=== PATIENT | female | born 1970 ===

== ENCOUNTER 2018-02-21 10:45 | Inpatient (IN) | payer BC ==
[2018-02-22 11:56] VITALS: BMI 20.3
[2018-02-28] MEDS ORDERED: Midazolam 2 MG/2 ML VIAL ONE (10:20)
[2018-02-28] MEDS ORDERED: Propofol 10 mg/ml Inj (20 ML) ONE (10:21)
[2018-02-28] MEDS ORDERED: Sodium Chloride 0.9% 20 ML IV ONE (10:21)
[2018-02-28] MEDS ORDERED: ceFAZolin 1 gm in NS 1 GM/100 ML BAG IVPB ONE (10:21)
[2018-02-28] MEDS ORDERED: Bupivacaine-Epi 0.5%-1:200,000 PF Inj ONE (10:21)
[2018-02-28] MEDS ORDERED: Rocuronium 10 mg/ml (5 ml) ONE (14:27)
[2018-02-28] MEDS ORDERED: White Petrolatum/Mineral Oil Ophth Oint(3.5 gm) ONE (14:28)
[2018-02-28] MEDS ORDERED: Morphine 4 MG/ML VIAL ONE (14:35)
[2018-02-28] MEDS ORDERED: Labetalol 25mg/5ml Syringe ONE (14:48)
[2018-02-28] MEDS ORDERED: Neostigmine Methylsulfate 3mg/3ml Syringe IV ONE (14:49)
[2018-02-28] MEDS ORDERED: Oxycodone/Acetaminophen 5/325 mg Tab PO PRN ×2 (15:19→15:26)
--- NOTE | 2018-02-28 15:26 | PCM.SURG1 ---
Surgeon's Initial Post Op Note - Surgeon's Notes Surgeon: Henny Mckeon MD Dry Color Mixer: Cody Gayle MD Type of Anesthesia: General Endo Pre-Operative Diagnosis: Abnormal uterine bleeding,sympomatic fibroid uterus, abdominal pain, bladder pain, rectal pain, sympomatic anemia Operative Findings: 14-16 week size fibroid enlarged uteurs with 5cm cervical myoma, normal tubes bilaterally adherent to ovarier, right ovary adherent to uterosacral, falloopian tube, pelivc site wall and ureter, left fallopian tube adherent, bilateural uretral jets on cystsocpy, mild left hydroureter, enodmetrios thorughout cul de sac, essure device coil removed Post-Operative Diagnosis: Uterine fibroid, adenomyosis, retained embedded essure device, pelvic endometriosis, left ovarian endometrioma, right ovarian endometrioma , mild left hydroureter, Operation Performed: Cystoscopy with bilateral uretral catherization, injection of fluoscenin dye and bilaterual uretolysis and excision of endometriosos performed by Dr Cody Gayle. Operative laparsopcy with Da Bradford robot with total robotic hysterectomy, Bilateral salpingopphrecotmy, Right ovarian lysis of adhesions, exicsion of embedded essure device, performed by Dr Mckeon Specimen/Specimens Removed: Uterus, cervix, essure device, left and right fallopian tubes and left and right ovaries Estimated Blood Loss: EBL {In ML}: 100 Blood Products Given: N/A Drains Used: No Drains Post-Op Condition: Good Date of Surgery/Procedure: 02/28/18 Time of Surgery/Procedure: 11:00
[2018-02-28] MEDS ORDERED: Lactated Ringer's 1,000 ML IV SCH (15:45)
[2018-02-28] MEDS: HYDROmorphone 0.5 mg/0.5 ml ISec IVP PRN ×2 (16:15→16:50)
--- NOTE | 2018-02-28 19:04 | OP ---
PROCEDURE DATE: 02/28/2018 SURGEON: Henny Mckeon MD ASSISTED BY: Cody Gayle MD PREOPERATIVE DIAGNOSES: As follows: 1. Pelvic pain. 2. Dysmenorrhea. 3. Dyspareunia. 4. Abdominal pain. 5. Bladder pain. 6. Abnormal uterine bleeding. 7. Uterine fibroid. 8. Pelvic endometriosis. 9. Right ovarian endometrioma. 10. Rule out interstitial cystitis. POSTOPERATIVE DIAGNOSES: 1. Pelvic pain. 2. Dysmenorrhea. 3. Dyspareunia. 4. Abdominal pain. 5. Bladder pain. 6. Abnormal uterine bleeding. 7. Uterine fibroid. 8. Pelvic endometriosis. 9. Right ovarian endometrioma. 10. Rule out interstitial cystitis. 11. Uterine adenomyosis. 12. Extensive pelvic adhesions. 13. Bilateral ureteral mild hydroureter. PROCEDURES PERFORMED: 1. Exam under anesthesia. 2. Cystoscopy with bilateral urethral catheterization and injection of IC-Green dye. 3. Operative robotic da Bradford laparoscopy. 4. Hysterectomy with bilateral salpingo-oophorectomy. 5. Lysis of adhesions. 6. Ovariolysis. 7. Excision of endometriosis. 8. Excision of right ovarian endometrioma and to be dictated separately by Dr. Cody Gayle, who was called in to assist and the procedure is bilateral ureterolysis. ANESTHESIA: General endotracheal. ESTIMATED BLOOD LOSS: 50 mL. INPUT AND OUTPUTS: Adequate. SPECIMENS: Include uterus, uterine fibroid, right ovary with the ovarian endometrioma, bilateral fallopian tubes, left ovary and pelvic endometriosis, all sent to Pathology. Also the sample contain an Essure device and had been embedded into the left pelvic sidewall. INDICATION FOR THE PROCEDURE AND CONSENT: The patient is a 48-year-old female with the long-lasting history of pelvic pain, dysmenorrhea, dyspareunia, abdominal pain, and bladder pain, and diffuse genitourinary pain of long duration. She also had abnormal uterine bleeding. She had a full workup, which included imaging which revealed the presence of a large adenomyotic uterus with the uterine fibroid as well as pelvic endometriosis. The right ovary was clearly seen to be adherent to the right pelvic sidewall with the right endometrioma and pelvic and rectopelvic adhesions. Prior to the surgery, also the patient had an Essure device placed and this was creating also abnormal symptoms. Prior to the surgery, the patient was counseled with regards to all the risks and benefits of the procedures and she agreed to moving forward with the surgery and all alternatives having been exhausted as she had failed multiple medical therapies. She understood that because of the particular difficultly of this procedure, she would necessitate a cystoscopy replacement of uterine stents and injection of IC-Green dye for the purpose of identifying the ureters throughout this difficult procedure and she agreed to that, to which she signed the consent and she was taken to the OR. FINDINGS OF SURGERY: The exam under anesthesia revealed a large uterus about 10 to 12 weeks gestation in size and the cystoscopy revealed a normal size bladder with no evidence of trigonitis, tumors or any other lesions or endometrial zone inside the bladder. The upper abdomen appear to be normal with normal liver, normal ascending and descending colon, normal appendix. The pelvis revealed significant adhesions with the uterus was large with the large posterior fibroid in the retroverted flexed position. The right ovary with significant adherent to the posterior pelvic sidewall and adherent as well on top of the ureter with the significant endometrioma. The left ovary was twisted posteriorly and the bladder was pulled up and distorted also secondary to the patient's prior surgery. DESCRIPTION OF PROCEDURE: At this point, the patient was taken to the OR and placed in dorsal lithotomy position. She was prepped and draped and the surgeons were gowned and gloved. Extreme attention was made in padding the patient in every area prone to pressure. Also extreme attention was placed in not overextend and over flexing the hips of the patient. A time-out was taken according to the hospital policy and the procedure was started. The first part of the procedure involved the cystoscopy. The cystoscope was inserted into the bladder. A 200 mL of fluid were inserted. The bladder appeared to be free of lesions and tumors. Both ureteral ostia were within the anatomical position. The left ureter then was cannulated with the 5-Finnish open-ended catheter all the way to the distal ureter and 5 mL of IC-Green were injected. Similarly, the contralateral ureter were also cannulated all the way to the distal ureter and 5 mL of Isovue were injected. At this point, the cystoscope was removed and the 16-Finnish Madrigal was inserted into the bladder. At this point, a speculum was placed in the vagina. The anterior lip of the cervix was grasped and the uterine manipulator was inserted into the uterus with a large size V-care without any problems. After regowning and regloving, attention was on the abdomen where the docking of the robot happened. An open laparoscopy was performed. An incision was made in the umbilicus with the open laparoscopy technique incising the fascia and the sharp fascia, entered into the peritoneum in a blunt fashion. A trocar was simply inserted and under direct visualization, the abdomen was insufflated. Under direction visualization, the shoulder portals were inserted in the left upper quadrant and right upper quadrant and left lower quadrant. The left quadrant was probed with the 12-mm in size. The findings were as described above. At this point, the da Bradford Xi robot was docked. Next, we proceeded with the lysis of adhesions. After elevating the uterus, it was evident that both the left and the right fallopian tubes and the ovaries were severely adherent to the posterior side cobian of the uterus and this was due to the presence of severe endometriosis. The uterus was elevated and a progressive dissection was performed. The ureters were identified using fluorescent technology. Dr. Gayle was called in and assisted and performed a ureterolysis, which he will dictate separately. Once the ureters were free of adhesions, the right ovary was elevated and free of adhesions. We proceeded to continue with the hysterectomy. The round ligament was first coagulated and ligated on the left hand side progressively and anterior bladder flap was developed by making an incision and progressively dissecting the bladder of the anterior part of the cervix. Dissection was continued on the left hand side where the utero-ovarian ligament was cut and progressively dissected all the way down to the uterine vessels all the way on the left hand side. At this point because of the five adhesions of the right ovary to the right pelvic sidewall, we proceeded with ligating the infundibulopelvic ligament and progressing without dissection always keeping an eye on the right ureter utilizing fluorescent technology all the way from the infundibulopelvic ligament all the way down to the broad ligament. Once this was incised, the round ligament also was incised and a bladder flap was developed anteriorly. At this point once the bladder flap was developed, the uterine vessels were ligated first on the right hand side always with extreme care to visualize the right ureter under direct visualization using fluorescence and they were cut creating a pedicle. Similarly on the left hand side, they were also coagulated first and then cut. Therefore freeing the uterus and freeing it from its vascular component. Throughout this time, the ureter always kept in visualization utilizing fluorescent technology. At this point because of the large size of the uterus, the uterus was amputated and the cervix was visualized. A trachelectomy at this point was performed utilizing the back stop of the V-Care as a guide. The cervix was then removed. The uterus was too large to be removed vaginally and therefore at this point we proceeded with closure of the vaginal cuff. We checked for hemostasis and was excellent. The vaginal cuff was closed with the running suture of 2-0 PDS in two separate layers. At this point, she was sent for hemostasis appeared to be excellent and the cuff was in excellent condition. Both pedicles were inspected. At this point, attention was on the left hand side where the deep infundibulopelvic ligament on the left side was cut and both the ovary and the fallopian tube on the left were removed. An area of invasive endometriosis nodule was identified in the left pelvic sidewall and it was excised. At this point, it was checked for hemostasis again and there appears to be excellent. The da Bradford robot was then docked. The instruments removed. The abdominal incision and the umbilicus was slightly extended and we proceeded with exteriorizing the uterus and taken it off from the incision. At this point, the incisions were closed with 0 PDS for the fascia and 4-0 Monocryl for the skin. At the end of the procedure, all instruments and counts were correct. The patient tolerated the procedure well and was taken to the recovery room in excellent condition. Cody Gayle MD MTDFlaco
[2018-02-28] MEDS: Simethicone 80 mg Chewtab PO SCH (22:58)
[2018-02-28] MEDS: cefOXitin IV 1 gm in Dextrose 1 GM/50 ML BAG IVPB SCH ×2 (23:00→23:06)
[2018-03-01 01:20] VITALS: O2SAT 99
[2018-03-01] MEDS: Simethicone 80 mg Chewtab PO SCH ×2 (06:47→14:10)
[2018-03-01] MEDS: cefOXitin IV 1 gm in Dextrose 1 GM/50 ML BAG IVPB SCH (06:48)
[2018-03-01 07:55] LABS: MEAN CELL VOLUME 83.7 fL (81.0-99.0); MEAN CORPUSCULAR HEMOGLOBIN 28.1 pg (27.0-31.0); MEAN CORPUSCULAR HGB CONC 33.6 g/dL (33.0-37.0); RBC 3.57 Mil/uL (3.80-5.20); RED CELL DISTRIBUTION WIDTH 23.4 % (11.5-14.5); WHITE BLOOD COUNT 8.5 K/uL (4.8-10.8)
[2018-03-01 08:35] LABS: ALB/GLOB RATIO 1.3 (1.0-2.1); ALBUMIN 3.5 g/dL (3.5-5.0); ALT/SGPT 37 U/L (9-52); AST/SGOT 29 U/L (14-36); BLOOD UREA NITROGEN 7 mg/dL (7-17); CALCIUM 8.9 mg/dl (8.6-10.4); GFR AFRICAN-AMERICAN > 60; GFR NON-AFRICAN AMERICAN > 60
[2018-03-01] MEDS ORDERED: Magnesium Hydroxide Susp 30 ml UD PO ONE (17:48)
[2018-03-01 17:50] VITALS: BP 95/50; PULSE 73; RESP 18; TEMP 98.4
--- NOTE | 2018-03-02 10:27 | CP.PCM.PN ---
Subjective - Date & Time of Evaluation Date of Evaluation: 03/01/18 Time of Evaluation: 07:00 - Subjective Subjective: pt seen adn examiend rpeort pain over icnsion, ambiatn,v odign, not passing flauts, toeratign regualrd eit, no fever, hclls, neau vmoitng, cp sob Objective - Vital Signs/Intake and Output Vital Signs (last 24 hours): Temp Pulse Resp BP Pulse Ox 98.4 F 73 18 95/50 L 99 03/01/18 16:00 03/01/18 16:00 03/01/18 16:00 03/01/18 16:00 03/01/18 16:00 Intake and Output: 03/02/18 03/02/18 06:59 18:59 Intake Total 1090 Output Total 0 Balance 1090 - Labs Labs: 03/01/18 07:47 03/01/18 07:47 - Constitutional Appears: Well, Non-toxic - Head Exam Head Exam: ATRAUMATIC, NORMAL INSPECTION - Eye Exam Eye Exam: EOMI - ENT Exam ENT Exam: Mucous Membranes Moist, Normal Exam - Neck Exam Neck Exam: Normal Inspection - Respiratory Exam Respiratory Exam: Clear to Ausculation Bilateral, NORMAL BREATHING PATTERN - Cardiovascular Exam Cardiovascular Exam: +S1, +S2 - GI/Abdominal Exam GI & Abdominal Exam: Soft, Tenderness, Normal Bowel Sounds Additional comments: TTP over incsion c/d/i healign well no guaridn no revboudn tendner no rigidty - Rectal Exam Rectal Exam: NORMAL INSPECTION - Extremities Exam Extremities Exam: Full ROM, Normal Capillary Refill, Normal Inspection Additional comments: neative regis sign - Back Exam Back Exam: NORMAL INSPECTION. absent: CVA tenderness (L), CVA tenderness (R), Full ROM, muscle spasm, paraspinal tenderness, rash noted, tenderness, vertebral tenderness Assessment and Plan (1) S/P hysterectomy with oophorectomy Assessment & Plan: 1. pain mananget 2. dc luke 3. regular diet 4. am albs 5. bowel regiment 6. abodmian binder, infecitve psironmette Status: Acute
--- NOTE | 2018-03-03 02:52 | CP.PCM.DIS ---
Provider - Provider Date of Admission: 02/28/18 09:11 Attending physician: Henny Mckeon MD Time Spent in preparation of Discharge (in minutes): 30 Diagnosis - Discharge Diagnosis (1) S/P hysterectomy with oophorectomy Status: Acute Priority: Medium Hospital Course - Lab Results Lab Results: Most Recent Lab Values WBC 8.5 K/uL (4.8-10.8) 03/01/18 07:47 RBC 3.57 Mil/uL (3.80-5.20) L 03/01/18 07:47 Hgb 10.0 g/dL (11.0-16.0) L 03/01/18 07:47 Hct 29.9 % (34.0-47.0) L 03/01/18 07:47 MCV 83.7 fL (81.0-99.0) 03/01/18 07:47 MCH 28.1 pg (27.0-31.0) 03/01/18 07:47 MCHC 33.6 g/dL (33.0-37.0) 03/01/18 07:47 RDW 23.4 % (11.5-14.5) H 03/01/18 07:47 Plt Count 247 K/uL (130-400) 03/01/18 07:47 MPV 9.0 fL (7.2-11.7) 03/01/18 07:47 Sodium 137 mmol/L (132-148) 03/01/18 07:47 Potassium 4.0 mmol/L (3.6-5.2) 03/01/18 07:47 Chloride 102 mmol/L (98-107) 03/01/18 07:47 Carbon Dioxide 27 mmol/L (22-30) 03/01/18 07:47 Anion Gap 12 (10-20) 03/01/18 07:47 BUN 7 mg/dL (7-17) 03/01/18 07:47 Creatinine 0.5 mg/dL (0.7-1.2) L 03/01/18 07:47 Est GFR ( Amer) > 60 03/01/18 07:47 Est GFR (Non-Af Amer) > 60 03/01/18 07:47 Random Glucose 101 mg/dL (65-105) 03/01/18 07:47 Calcium 8.9 mg/dl (8.6-10.4) 03/01/18 07:47 Total Bilirubin 0.6 mg/dL (0.2-1.3) 03/01/18 07:47 AST 29 U/L (14-36) 03/01/18 07:47 ALT 37 U/L (9-52) 03/01/18 07:47 Alkaline Phosphatase 37 U/L (38-126) L 03/01/18 07:47 Total Protein 6.2 g/dL (6.3-8.3) L 03/01/18 07:47 Albumin 3.5 g/dL (3.5-5.0) D 03/01/18 07:47 Globulin 2.7 gm/dL (2.2-3.9) 03/01/18 07:47 Albumin/Globulin Ratio 1.3 (1.0-2.1) 03/01/18 07:47 Blood Type O NEGATIVE 02/28/18 10:05 Antibody Screen Negative 02/28/18 10:05 - Hospital Course Hospital Course: s/p TRH, BSO, cystscopy lianna post op course Discharge Exam - Head Exam Head Exam: ATRAUMATIC, NORMAL INSPECTION - Eye Exam Eye Exam: EOMI, Normal appearance - Respiratory Exam Respiratory Exam: Clear to PA & Lateral, NORMAL BREATHING PATTERN, UNREMARKABLE - Cardiovascular Exam Cardiovascular Exam: REGULAR RHYTHM, +S1, +S2 - GI/Abdominal Exam GI & Abdominal Exam: Normal Bowel Sounds, Soft, Unremarkable - Rectal Exam Rectal Exam: NORMAL INSPECTION - Extremities Exam Extremities exam: calf tenderness, full ROM, joint swelling, normal capillary refill, normal inspection, pedal edema, tenderness, pedal pulses present - Neurological Exam Neurological exam: CN II-XII Intact, Normal Gait, Oriented x3, Reflexes Normal Discharge Plan - Discharge Medications Prescriptions: Ibuprofen [Motrin] 600 mg PO Q6 PRN #15 tab PRN Reason: pain oxyCODONE/Acetaminophen [Percocet 5/325 mg Tab] 1 tab PO Q6 #12 tab - Follow Up Plan Condition: GOOD Disposition: HOME/ ROUTINE Patient education suggested?: Yes Instructions: How to Prevent Surgical Site Infections, Robot-Assisted Hysterectomy, Ovarian Cyst Removal, Laparoscopic Surgery Additional Instructions: No heavy lifting, pls go to ER for severe pain or any bleeding. Referrals: Henny Mckeon MD [Staff Provider] -
--- NOTE | 2018-03-05 19:05 | OP ---
Copied To: Cody Gayle MD Attending MD: Cody Gayle MD PROCEDURE DATE: 02/28/2018 SURGEON: Cody Gayle M.D. ASSISTED BY: Henny Mckeon M.D. PREOPERATIVE DIAGNOSIS: Mild bilateral hydroureters. POSTOPERATIVE DIAGNOSIS: Mild bilateral hydroureters. PROCEDURE PERFORMED: Bilateral ureterolysis, robotic da Bradford. TYPE OF ANESTHESIA: General endotracheal. ESTIMATED BLOOD LOSS: Minimal. COMPLICATIONS: None. description of THE PROCEDURE: I was called in to assist Dr. Henny Mckeon, who was performing hysterectomy with bilateral salpingo-oophorectomy. The patient had evidence of endometriosis with significant adhesions. She had priorly performed a cystoscopy with bilateral urethral catheterization and injection of IC-Green dye. Ureters were both visible. This was during the performing of hysterectomy, so in order to continue with the procedure, both ureters had to be dissected out. The ovaries were elevated. The peritoneum was entered laterally on the left hand side and the ureter was progressively dissected off and lateralized on the left side and similarly on the right hand side. After this was done, both ureters were free and the procedure continued uneventfully. At this point, the console was handed back to Dr. Mckeon to continue with the operation. Cody Gayle MD MTDD
== END 2018-03-01 21:45 | disposition home or self-care (01) | DRG 742 ==
LOC: C.9S 02-28 09:11 → EDSTATUS 02-28 10:30 → C.4M 02-28 17:29
PROVIDERS: ADMIT Obstetrics & Gynecology; ATTEND Obstetrics & Gynecology
PROC: 0UT74ZZ Resection of Bilateral Fallopian Tubes, Percutaneous Endoscopic Approach (ICD-10-PCS; 2018-02-28)
PROC: 0UN04ZZ Release Right Ovary, Percutaneous Endoscopic Approach (ICD-10-PCS; 2018-02-28)
PROC: 0DNW4ZZ Release Peritoneum, Percutaneous Endoscopic Approach (ICD-10-PCS; 2018-02-28)
PROC: 0UDB8ZX Extraction of Endometrium, Via Natural or Artificial Opening Endoscopic, Diagnostic (ICD-10-PCS; 2018-02-28)
PROC: 8E0W4CZ Robotic Assisted Procedure of Trunk Region, Percutaneous Endoscopic Approach (ICD-10-PCS; 2018-02-28)
PROC: 0TJB8ZZ Inspection of Bladder, Via Natural or Artificial Opening Endoscopic (ICD-10-PCS; 2018-02-28)
PROC: 0UT94ZZ Resection of Uterus, Percutaneous Endoscopic Approach (ICD-10-PCS; principal; 2018-02-28 10:30)
PROC: 0UT24ZZ Resection of Bilateral Ovaries, Percutaneous Endoscopic Approach (ICD-10-PCS; 2018-02-28 10:30)
DX: D25.9 Leiomyoma of uterus, unspecified (principal); N13.4 Hydroureter; D64.9 Anemia, unspecified; N73.6 Female pelvic peritoneal adhesions (postinfective); N80.0 Endometriosis of uterus; N80.1 Endometriosis of ovary; N80.3 Endometriosis of pelvic peritoneum; N94.10 Unspecified dyspareunia; N94.6 Dysmenorrhea, unspecified; N93.8 Other specified abnormal uterine and vaginal bleeding

== ENCOUNTER 2018-02-22 11:56 | Emergency (ER) | payer BC ==
[2018-02-22 11:56] VITALS: BMI 20.3
[2018-02-22 12:02] VITALS: RESP 18
[2018-02-22] MEDS ORDERED: Sodium Chloride 0.9% 1,000 ML IV SCH (12:15)
[2018-02-22 12:53] LABS: BASO # 0.1 K/uL (0.0-0.2); EOS # 0.1 K/uL (0.0-0.7); EOS % 2.3 % (0.0-4.0); HEMOGLOBIN 11.6 g/dL (11.0-16.0); LYMPH # 1.5 K/uL (1.0-4.3); LYMPH % 22.2 % (20.0-40.0); MEAN CORPUSCULAR HEMOGLOBIN 27.1 pg (27.0-31.0); MEAN CORPUSCULAR HGB CONC 32.8 g/dL (33.0-37.0); MEAN PLATELET VOLUME 9.4 fL (7.2-11.7); MONO # 0.5 K/uL (0.0-0.8); NEUT # 4.4 K/uL (1.8-7.0); NEUT % 67.5 % (50.0-75.0); RBC 4.3 Mil/uL (3.80-5.20); RED CELL DISTRIBUTION WIDTH 27.1 % (11.5-14.5); WHITE BLOOD COUNT 6.6 K/uL (4.8-10.8)
[2018-02-22 12:55] LABS: MEAN CELL VOLUME 82.6 fL (81.0-99.0)
[2018-02-22 13:01] LABS: INR 1.1; PROTHROMBIN TIME 12.3 SECONDS (9.7-12.2); URINE BILIRUBIN NEGATIVE (NEGATIVE); URINE BLOOD 3+ (NEGATIVE); URINE CLARITY Hazy (Clear); URINE COLOR Red (YELLOW); URINE GLUCOSE (UA) NORMAL (Normal); URINE LEUKOCYTE ESTERASE NEG Leu/uL (Negative); URINE PROTEIN 2+ mg/dL (NEGATIVE); URINE UROBILINOGEN NORMAL mg/dL (0.2-1.0)
--- NOTE | 2018-02-22 13:03 | C.PDOC ---
History Of Present Illness 48 y/o female with history of Anemia and uterine fibroids presents to ED with c/ o vaginal bleeding for 2 days. Patient reports 10 pads used today. H/o similar episode last month with transfusion. Patient has a scheduled hysterectomy in 1 week with OBGYN. Denies headache, lightheaded, dizziness, abdominal pain, nausea , vomiting or any other complaints at this time. Time Seen by Provider: 02/22/18 12:09 Chief Complaint (Nursing): Female Genitourinary History Per: Patient History/Exam Limitations: no limitations Onset/Duration Of Symptoms: Days Current Symptoms Are (Timing): Still Present Past Medical History Reviewed: Historical Data, Nursing Documentation, Vital Signs Vital Signs: Last Vital Signs Temp 98 F 02/22/18 14:10 Pulse 76 02/22/18 14:10 Resp 18 02/22/18 14:10 BP 126/73 02/22/18 14:10 Pulse Ox 98 02/22/18 14:10 - Medical History PMH: Anemia Surgical History: No Surg Hx - [facility] Procedures TETANUS TOXOID ADMINIST (08/17/05) Family History: States: No Known Family Hx - Social History Hx Alcohol Use: No Hx Substance Use: No - Immunization History Hx Tetanus Toxoid Vaccination: Yes Hx Influenza Vaccination: Yes Hx Pneumococcal Vaccination: No Review Of Systems Constitutional: Negative for: Fever, Chills Gastrointestinal: Negative for: Nausea, Vomiting, Abdominal Pain Genitourinary: Positive for: Vaginal Bleeding. Negative for: Dysuria, Frequency , Vaginal Discharge Skin: Negative for: Rash Neurological: Negative for: Dizziness Physical Exam - Physical Exam Appears: Non-toxic, No Acute Distress Skin: Warm, Dry, No Rash Head: Atraumatic, Normacephalic Eye(s): bilateral: Normal Inspection, EOMI Nose: Normal Oral Mucosa: Moist Neck: Normal ROM, Supple Chest: Symmetrical Cardiovascular: Rhythm Regular Respiratory: Normal Breath Sounds, No Accessory Muscle Use, No Rales, No Rhonchi , No Wheezing Gastrointestinal/Abdominal: Soft, No Tenderness, No Guarding, No Rebound Extremity: Normal ROM Neurological/Psych: Oriented x3, Normal Speech, Normal Cognition ED Course And Treatment - Laboratory Results Result Diagrams: 02/22/18 12:48 02/22/18 12:48 O2 Sat by Pulse Oximetry: 99 (RA) Pulse Ox Interpretation: Normal Progress Note: Hemoglobin 11. Pt is asymptomatic. D/w Dr. Mike ORTIZ who advised patient be discharged and given Provera prescription as written and she will f/u with her. Pt was discharged and instructed to return to ER if symptoms persist or worsen. Disposition - Disposition Referrals: Henny Mckeon MD [Staff Provider] - Disposition: HOME/ ROUTINE Disposition Time: 13:44 Condition: STABLE Additional Instructions: Follow up with Dr Mckeon as scheduled. Return to ER if symptoms persist or worsen. Prescriptions: MedroxyPROGESTERone [Provera] 1 tab PO Q8 #21 tab Instructions: Heavy Periods (DC) Forms: Nanalysis (Senegalese) - Clinical Impression Clinical Impression: DUB (dysfunctional uterine bleeding) - PA / GENERAL PEDIATRICIAN / Resident Statement MD/DO has reviewed & agrees with the documentation as recorded. - Scribe Statement The provider has reviewed the documentation as recorded by the Scriblesli Aviles All medical record entries made by the Scribe were at my direction and personally dictated by me. I have reviewed the chart and agree that the record accurately reflects my personal performance of the history, physical exam, medical decision making, and the department course for this patient. I have also personally directed, reviewed, and agree with the discharge instructions and disposition.
[2018-02-22 13:04] LABS: ALB/GLOB RATIO 1.7 (1.0-2.1); ALT/SGPT 51 U/L (9-52); AST/SGOT 38 U/L (14-36); BLOOD UREA NITROGEN 15 mg/dL (7-17); CALCIUM 9.6 mg/dl (8.6-10.4); GFR AFRICAN-AMERICAN > 60; GFR NON-AFRICAN AMERICAN > 60
[2018-02-22 13:08] LABS: HCG,QUALITATIVE URINE NEGATIVE (NEGATIVE)
[2018-02-22 14:11] VITALS: BP 126/73; PULSE 76; TEMP 98
[2018-02-22 15:44] VITALS: O2SAT 99
== END 2018-02-22 14:11 | disposition home or self-care (01) ==
LOC: C.ER 11:56
DX: N93.8 Other specified abnormal uterine and vaginal bleeding (principal)
CPT/HCPCS: 80053; 81001; 84703; 85025; 85610; 85730; 99284; J7030